=== PATIENT | male | born 2005 | race Caucasian/White ===

== ENCOUNTER 2023-06-12 11:08 | Emergency (ER) | payer OTHER, SELFPAY ==
[2023-06-12 11:12] VITALS: BP 121/73; PULSE 71; RESP 16; TEMP 36.9; O2SAT 97; BMI 26.6
--- NOTE | 2023-06-12 11:48 | RAD_ITS ---
STUDY: X-RAY - LEFT HAND, ATTENTION FIFTH FINGER REASON FOR EXAM: Male, 17 years old. Left small finger laceration TECHNIQUE: 3 view(s) of the finger were obtained. COMPARISON: None. FINDINGS: Normal metacarpal head. Normal metacarpophalangeal joint. Normal proximal phalanx. Normal middle phalanx. Normal distal phalanx. Normal proximal interphalangeal joint. Normal distal interphalangeal joint. Soft tissue laceration along the undersurface of the distal interphalangeal joint of the fifth digit. RAD/Finger(s) Min 2 Views IMPRESSION: Soft tissue laceration along the volar aspect of the distal phalanx of the fifth digit. No radiopaque foreign body is seen. Electronically Signed: Pascual Plummer MD at 12:25 EST ,
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
[2023-06-12 12:17] VITALS: BP 134/78; PULSE 64; RESP 18; O2SAT 99
--- NOTE | 2023-06-12 12:40 | ED.RN ---
DR WOODARD IS TALKING TO DR RIVERA AT [facility]
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
[2023-06-12 14:17] VITALS: BP 122/76; PULSE 64; RESP 14; O2SAT 99
[2023-06-12] MEDS: Cephalexin 250 MG Capsule 500 MG PO (14:22)
[2023-06-12] MEDS: Lidocaine 1% (20 ml mdv) 20 ML Vial 10 ML INFILT (14:22)
[2023-06-12 14:25] VITALS: BP 116/64; PULSE 71; RESP 14; TEMP 36.4; O2SAT 99
== END 2023-06-12 14:32 | disposition home or self-care (01) ==
PROVIDERS: Emergency Provider Emergency Medicine; Visit Provider Emergency Medicine
DX: S66.127A Laceration of flexor muscle, fascia and tendon of left little finger at wrist and hand level, initial encounter (principal); S64.497A Injury of digital nerve of left little finger, initial encounter; S61.217A Laceration without foreign body of left little finger without damage to nail, initial encounter; W26.8XXA Contact with other sharp object(s), not elsewhere classified, initial encounter; Y99.0 Civilian activity done for income or pay
CPT/HCPCS: 12002; 73140; 99284

== ENCOUNTER 2023-09-26 08:00 | Outpatient (RCR) | payer OTHER, SELFPAY ==
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
--- NOTE | 2023-08-01 09:04 | HP.OTREVAL ---
Re-Evaluation Intro: RAUL MENDOZA MD, It has been my pleasure to treat CHEO COVINGTON over the last 8 visits for FDP laceration with radial and ulnar digital nerve laceration. Please see the progress note below for an update on the occupational therapy plan of care! Subjective Subjective: pt arrives 7 weeks and 6 days s/p from FDP zone 1 with Radial and ulnar digital nerve repair. pt states he is performing all his ADls and IADls IND at this time. feels a fullness or tightness with composite fisting- reports performing PROM/AROM ex. as well as using static progressive orthosis. pt arrives today to increase ext of static progressive orthosis. Objective Objective/Function: left LF PIP 97* left LF DIP 60* DIP-35* DIP -25 following Therapy left laser beam trim operator strength 60# right 120# pt reports full sensation pt will initiate PRE next visit and will continue with static progressive orthosis Pt to cont with scar mtg. Plan Plan Plan: Following Dr. MCCRARY d/c dorsal blocking orthosis sherley. static progressive DIP ext orthosis due to increase Flexion contracture WEEK 6 SPLINT: For DIP flexion contracture >20* and static-progressive splinting SUPERVISED THERPAY: AROM/PROM of elbow, wrist and hand Modalities: May add NMES to assist in pull through HEP: Continue all exercises for HEP WEEK 8 May start gentle laser beam trim operator strengthening Goals Goals Patient Goals: Regain Mobility, Regain Strength, Return to Work, Use Hand/Wrist/Arm Normally Again and Be More Independent in ADLS Goal:100% adherence to protocol: Yes Goal:Daily scar massage when approriate: Yes Goal:ROM equal to unaffected hand: Yes Goal:Assistant Chief Train Dispatcher/Pinch strength at least 75% of unaffected hand: Yes Goal:No pain with affected hand use: Yes Goal:Full use of affected hand in daily activities including work: Yes Goal:Improvement in sensation documented by [place]-Santi monofiliaments: Yes Anticipated Interventions Anticipated Interventions Anticipated Interventions: A/AAROM/PROM, Strengthening, Scar Care, Triggerpoint Release, Sensory Retraining, Modalities, Orthoses, Joint Protection/Energy Conservation, Ergonomic Education, Fine Motor Coord/Ronaldo, Sensory Stimulation, ADL Training, Education re Diagnosis, Caregiver Training and Home Program Re-Evaluation Ending Re-evaluation ending: Please do not hesitate to contact me at [phone] by phone or if you have questions or concerns regarding this new plan of care! Sincerely, Leonila Shirley, OTR/L, CHT
== END 2023-09-26 19:00 | disposition home or self-care (01) ==
LOC: OT 08:00
PROVIDERS: Referring Provider Orthopaedic Surgery; Visit Provider Orthopaedic Surgery
DX: S66.127D Laceration of flexor muscle, fascia and tendon of left little finger at wrist and hand level, subsequent encounter (principal); S64.40XD Injury of digital nerve of unspecified finger, subsequent encounter; S67.192D Crushing injury of right middle finger, subsequent encounter
CPT/HCPCS: 97035; 97110; 97140; 97166; 97530